=== PATIENT | female | born 1990 | race Caucasian/White ===

== ENCOUNTER 2018-02-07 22:31 | Emergency (ER) | payer OTHER ==
[2018-02-07] MEDS: METHYLPREDNISOLONE 125 MG INJ IM (23:31)
[2018-02-07] MEDS: IPRATROPIUM (NEB) 0.5 MG/2.5 ML AMP NEB (23:39)
[2018-02-07] MEDS: ALBUTEROL 0.5% (NEB) 2.5 MG/0.5 ML AMP INH (23:39)
[2018-02-08] MEDS: ALBUTEROL 0.5% (NEB) 2.5 MG/0.5 ML AMP INH (01:16)
== END 2018-02-08 02:35 | disposition home or self-care (01) ==
LOC: FTE 22:31
DX: J45.901 Unspecified asthma with (acute) exacerbation (principal); J20.9 Acute bronchitis, unspecified
CPT/HCPCS: 94644; 94645; 96372; 99284-25